=== PATIENT | female | born 1945 | race Caucasian/White ===

== ENCOUNTER 2020-12-30 22:42 | Emergency (ER) | payer OTHER, SELFPAY ==
--- NOTE | ~2020-12-30 | CT_ITS ---
EXAMINATION: CT brain wo con DATE: 12/30/2020 23:30 INDICATION: Facial numbness. TECHNIQUE: Computed tomography (CT) of the head was performed without intravenous contrast. The mA wa s adjusted according to patient size. Iterative reconstruction technique was employed. The dose-lengt h product was 529.67 mGy-cm. COMPARISON: None FINDINGS: There are scattered areas of low attenuation in the cerebral white matter. There is no int racranial hemorrhage, acute infarction, or abnormal intracranial mass lesion. The ventricles are norm al in size. There is mucosal thickening in the paranasal sinuses. There is a trace left mastoid effus ion. There are likely changes of ocular lens replacement surgeries. IMPRESSION: 1. Mild nonspecific cerebral white matter disease, which likely represents chronic small vessel ische larissa disease. Reviewed, dictated and finalized at location A. IMPRESSION: 1. 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
--- NOTE | ~2020-12-30 | XR_ITS ---
EXAMINATION: XR chest 1V portable DATE: 12/30/2020 23:52 INDICATION: Chest pain. TECHNIQUE: A single frontal view of the chest was obtained. COMPARISON: None. FINDINGS: There is mild atelectasis in the lower lung zones. No pleural effusion or pneumothorax. The heart size is normal. IMPRESSION: 1. Mild atelectasis in the lower lung zones. Reviewed, dictated and finalized at location A.
--- NOTE | 2020-12-30 22:52 | ECG_ITS ---
Measurements Intervals [place] Rate: 81 P: 59 TX: 128 QRS: -5 QRSD: 82 T: 52 QT: 399 QTc: 465 Interpretive Statements SINUS RHYTHM BASELINE WANDER- V3 NORMAL ECG Electronically Signed On 12-31-2020 7:08:13 CDT by Librado Rolle D.O.
[2020-12-30 22:53] VITALS: BP 109/68; PULSE 85; RESP 20; TEMP 36.5
--- NOTE | 2020-12-30 22:57 | ED.GENADULT ---
HPI - General Adult General Chief complaint: Chest Pain Stated complaint: CP Time Seen by Provider: 12/30/20 22:46 History of Present Illness HPI narrative: Patient 75-year-old female presents the emergency department with chief complaint of chest pain. [facility] she had a recent hemorrhagic stroke. Patient states that today she started having some episodes of midsternal chest discomfort and reported that she had pain that radiated to her arms she also reported that she had a little bit of numbness in her face when this happened. The patient states the pain has been intermittent and currently the pain is mild. A prehospital EKG was done by EMS showed no evidence of ST elevation. The patient was given aspirin by EMS prior to arrival. Related Data Allergies Allergy/AdvReac Type Severity Reaction Status Date / Time Cephalosporins Allergy Rash Verified 12/24/20 18:32 codeine Allergy Rash Verified 12/24/20 18:32 hydromorphone [From Dilaudid] Allergy Rash Verified 12/24/20 18:32 hydroxyzine Allergy Rash Verified 12/24/20 18:32 lamotrigine Allergy Unknown Verified 12/24/20 18:32 Penicillins Allergy Rash Verified 12/24/20 18:32 meperidine [From Demerol] AdvReac Other Verified 12/24/20 18:32 Review of Systems Review of Systems: A 10 system review of systems was completed on the patient and is negative except for what is stated in the HPI. Nursing and ancillary documentation was reviewed. PMFSH Past Medical History Medical History GERD (gastroesophageal reflux disease) Hyperlipidemia Hypothyroidism Neurogenic bladder Type 2 diabetes mellitus Family History Family History Daughter Alcoholism Cancer Mother No problems noted. Father Heart disease Social History Social History Social History: alone, apartment with2 steps to enter without rails. Son lives nearby but works. Smoking status: Never smoker Exam Narrative: GENERAL: Well-appearing, well-nourished, and in no acute distress. HEAD: Normocephalic, atraumatic. EYES: PERRLA and EOMI. ENT: Nares clear, no rhinorrhea or epistaxis. Mucous membranes moist. NECK: Supple. CHEST: Clear to auscultation. No respiratory distress. HEART: Regular rate and rhythm. No murmur heard. Normal peripheral pulses. ABDOMEN: Soft, nontender, nondistended, normal active bowel sounds. EXTREMITIES: Normal range of motion. No edema. SKIN: Warm, dry, no rash. NEURO: No focal deficits. Alert and oriented x3. PSYCH: Normal mood and affect. Course Vital Signs Vital signs: Vital Signs Temperature 36.5 C 12/30/20 22:53 Pulse Rate 85 12/30/20 22:53 Respiratory Rate 20 12/30/20 22:53 Blood Pressure 109/68 12/30/20 22:53 Temperature 36.5 C 12/30/20 22:53 Pulse Rate 72 12/31/20 03:22 Respiratory Rate 14 12/31/20 03:22 Blood Pressure 94/62 L 12/31/20 03:22 Pulse Oximetry 95 12/31/20 03:22 Medical Decision Making Vital Signs Vital Signs: Vital Signs Temperature 36.5 C 12/30/20 22:53 Pulse Rate 85 12/30/20 22:53 Respiratory Rate 20 12/30/20 22:53 Blood Pressure 109/68 12/30/20 22:53 Temperature 36.5 C 12/30/20 22:53 Pulse Rate 72 12/31/20 03:22 Respiratory Rate 14 12/31/20 03:22 Blood Pressure 94/62 L 12/31/20 03:22 Pulse Oximetry 95 12/31/20 03:22 Lab Data Result diagrams: 12/30/20 23:11 12/30/20 23:11 Labs: Lab Results 12/30/20 12/30/20 12/30/20 Range/Units 23:11 23:11 23:11 WBC 4.8 (4.5-10.0) K/mm3 RBC 3.99 L (4.2-5.4) M/mm3 Hgb 12.7 (12.0-15.0) g/dL Hct 38.4 (37.0-47.0) % MCV 96.2 (80-100) fl MCH 31.8 (26-34) pg MCHC 33.1 (32-36) g/dl RDW 14.3 (11.5-14.5) % Plt Count 109 L (150-375) k/mm3 M
[2020-12-30 23:02] VITALS: BP 123/85; PULSE 80; RESP 18; O2SAT 96
[2020-12-30 23:19] LABS: Basophils Percent Auto 0.6 % (0.2-1.2); Eosinophils Absolute Auto 0.3 K/mm3 (0-0.3); Eosinophils Percent Auto 5.4 % (0-4.4); Hematocrit 38.4 % (37.0-47.0); Hemoglobin 12.7 g/dL (12.0-15.0); Immature Granulocyte Absolute 0.01 K/mm3 (0.00-0.031); Immature Granulocyte Percent A 0.2 % (0-0.5); Immature Platelet Fraction Pct 3.8 % (0.9-11.2); Lymphocytes Absolute Auto 1.39 K/mm3 (0.9-3.2); Lymphocytes Percent Auto 28.7 % (18.3-44.2); Mean Corpuscular HGB Conc 33.1 g/dl (32-36); Mean Corpuscular Hemoglobin 31.8 pg (26-34); Mean Corpuscular Volume 96.2 fl (80-100); Mean Platelet Volume 10.3 fl (7.4-10.4); Monocytes Absolute Auto 0.6 K/mm3 (0.1-0.6); Neutrophils Absolute Auto 2.6 K/mm3 (1.3-6.7); Neutrophils Percent Auto 53.1 % (45.5-73.1); Platelet Count Result 109 k/mm3 (150-375); Red Blood Count 3.99 M/mm3 (4.2-5.4); Red Cell Distribution Width 14.3 % (11.5-14.5); White Blood Count 4.8 K/mm3 (4.5-10.0)
[2020-12-30 23:28] LABS: INR 1.1; Prothrombin Time 14.4 Seconds (11.1-14.7)
[2020-12-30 23:29] LABS: Alanine Aminotransferase 40 U/L (4-35); Albumin Level 3.5 g/dL (3.5-5.1); Alkaline Phosphatase 123 U/L (38-126); Anion Gap 6 mmol/L (8-16); Aspartate Amino Transferase 79 U/L (14-36); Bilirubin,Total 0.6 mg/dL (0.2-1.3); Blood Urea Nitrogen 8 mg/dL (7-17); Calcium 8.6 mg/dL (8.4-10.2); Carbon Dioxide 25 mmol/L (22-30); Chloride 106 mmol/L (98-107); Estimated CRCL calculation 64 ml/min; Estimated Glomerular Filt Rate > 60; Glucose 109 mg/dL (65-110); Partial Thromboplastin Time 31.3 SECONDS (22.3-36.8); Potassium 3.9 mmol/L (3.4-5.0); Sodium 137 mmol/L (137-145)
[2020-12-30 23:30] LABS: Lactic Acid Reflex 1.4 mmol/L (0.7-2.1)
[2020-12-30 23:42] LABS: Magnesium 1.6 mg/dL (1.6-2.3); Troponin I < 0.012 ng/mL (0.000-0.034)
[2020-12-31 00:21] VITALS: BP 97/57; PULSE 79; RESP 16; O2SAT 96
[2020-12-31 03:22] VITALS: BP 94/62; PULSE 72; RESP 14; O2SAT 95
[2020-12-31 03:44] LABS: Troponin I < 0.012 ng/mL (0.000-0.034)
[2020-12-31 05:13] VITALS: BP 120/78; PULSE 79; RESP 14; O2SAT 94
--- NOTE | 2020-12-31 05:21 | PC.NURSE ---
Called [facility] to request transport. ETA [phone]
--- NOTE | 2020-12-31 05:35 | PC.NURSE ---
talk to sudhakar @ [facility],given report , # called when ems trasport is [phone]
[2020-12-31 05:51] VITALS: BP 115/71; PULSE 82; O2SAT 92
--- NOTE | 2020-12-31 06:29 | PC.NURSE ---
[facility] called and eta is [phone]
--- NOTE | 2020-12-31 06:59 | PC.NURSE ---
called [facility] to request transport. Cannot come until about 1000
[2020-12-31 08:14] VITALS: BP 115/64; PULSE 72; RESP 16; O2SAT 92
== END 2020-12-31 08:14 ==
PROVIDERS: Emergency Provider Emergency Medicine
DX: R07.89 Other chest pain (principal); I69.151 Hemiplegia and hemiparesis following nontraumatic intracerebral hemorrhage affecting right dominant side; I69.198 Other sequelae of nontraumatic intracerebral hemorrhage; H53.9 Unspecified visual disturbance; K21.9 Gastro-esophageal reflux disease without esophagitis; E78.5 Hyperlipidemia, unspecified; E03.9 Hypothyroidism, unspecified; E11.9 Type 2 diabetes mellitus without complications; N31.9 Neuromuscular dysfunction of bladder, unspecified; R90.82 White matter disease, unspecified; R91.8 Other nonspecific abnormal finding of lung field; Z79.84 Long term (current) use of oral hypoglycemic drugs
CPT/HCPCS: 36415; 70450; 71045; 80053; 83605; 83735; 84484; 85025; 85055; 85610; 85730; 93005; 99284